=== PATIENT | female | born 1990 | race Two or more races ===

== ENCOUNTER 2025-01-09 14:00 | Emergency (ER) | payer OTHER ==
[~2025-01-09] VITALS: Ht 160 cm; Wt 100.7 kg
--- NOTE | 2025-01-09 14:26 | ED.PDOC ---
GI ASSESSMENT HPI Comments 34 y.o female presents to the ED for a chief complaint of left lower quadrant pain that started yesterday around 1900. Patient reports pain is constant, non radiating and worsens when she is about to urinate. Patient states the LLQ is mildly tender. Patient denies any nausea, vomiting, diarrhea, fever, chills, hematuria, bloody stool. Of note, when asked if she could possibly be , patient states she does not believe she is , however is not using any control. Chief Complaint: Abdominal Pain Time Seen by MD: 14:19 Primary Care Provider: KEHINDE Webster Notes: Medications, Allergies Allergies: Coded Allergies: NO KNOWN ALLERGIES (Unverified , 01/09/25) Mode of Arrival: Ambulatory Timing: Days (1) Duration: Since onset Quality: Sharp Vomitus: None Stool: Normal Severity: Moderate Recent: None Recent Hx of: None Pain Location: LLQ Modifying Factors: Nothing Associated sign and symptoms: Abdominal Pain Past Medical History PAST MEDICAL HISTORY: Denies Surgical History: Denies all surgeries [employer] History: No Pertinent [employer] History Family History Family History: Reviewed,noncontributory to illness, No family hx of Cancer, No family hx of DM, No family hx of Heart digna, No family hx of HTN, No family hx ofKidney digna, No family hx of Liver digna, No family hx of Lung digna, No family hx of Stroke Social History Smoker: Non-Smoker Alcohol: Denies ETOH Use Drugs: Denies Drug Use Lives In: Home Constitutional: denies: chills, diaphoresis, fatigue, fever, malaise, sweats, weakness, others EENTM: denies: blurred vision, double vision, ear bleeding, ear discharge, ear drainage, ear pain, ear ringing, eye pain, eye redness, hearing loss, mouth pain, mouth swelling, nasal discharge, nose bleeding, nose congestion, nose pain, photophobia, tearing, throat pain, throat swelling, voice changes, others Respiratory: denies: cough, hemoptysis, orthopnea, SOB at rest, shortness of breath, SOB with excertion, stridor, wheezing, others Cardiovascular: denies: chest pain, dizzy spells, diaphoresis, Dyspnea on exertion, edema, irregular heart beat, left arm pain, lightheadedness, palpitations, PND, syncope, others Gastrointestinal: reports: abdominal pain; denies: abdomen distended, blood streaked bowels, constipated, diarrhea, dysphagia, difficulty swallowing, hematemesis, melena, nausea, poor appetite, poor fluid intake, rectal bleeding, rectal pain, vomiting, others Genitourinary: denies: abnormal vagina bleeding, burning, dyspareunia, dysuria, flank pain, frequency, hematuria, incontinence, pain, , vagina discharge, urgency, others Neurological: denies: dizziness, fainting, headache, left sided numbness, left sided weakness, numbness, paresthesia, pre-existing deficit, right sided numbness, right sided weakness, seizure, speech problems, tingling, tremors, weakness, others Musculoskeletal: denies: back pain, gout, joint pain, joint swelling, muscle pain, muscle stiffness, neck pain, others Integumetry: denies: bruises, change in color, change in hair/nails, dryness, laceration, lesions, lumps, rash, wounds, others Allergic/Immunocompromised: denies: Difficulty Healing, Frequent Infections, Hives, Itching, others Hematologic/Lymphatic: denies: anemia, blood clots, easy bleeding, easy bruising, swollen glands, others Endocrine: denies: excessive hunger, excessive sweating, excessive thirst, excessive urination, flushing, intolerance to cold, intolerance to heat, unexplained weight gain, unexplained weight loss, others Psychiatric: denies: anxiety, bipolar disorder, depression, hopeless, panic disorder, schizophrenia, sleepless, suicidal, others All Other Systems: Reviewed and Negative Physical Exam General Appearance: No Apparent Distress HEENT: Other (moist mucous membranes) Neck: Full Range of Motion, Normal Inspection Respiratory: Lungs Clear, No Accessory Muscle Use, No Respiratory Distress, Normal Breath Sounds Cardiovascular: No Edema, No JVD, Regular Rate/Rhythm Breast Exam: Deferred Gastrointestinal: Non Tender, Soft Genitalia: Deferred Pelvic: Deferred Rectal: Deferred Extremities: Normal inspection, Normal range of motion, Non-tender, No pedal edema Neurologic: Alert (oriented x 4), Normal Affect, Normal Mood, Other (Ambulatory without difficulty.) Cerebellar Function: NOT DONE Reflexes: NOT DONE Skin: Dry, Normal Color, Warm Lymphatic: NOT DONE Was a procedure done? Was a procedure done?: No GI differential Dx Differential Diagnosis: Bowel Obstruction, Diverticular disease, Ectopic , Inflammatory BD, PID, UTI, Food Poisoning, , Bacterial, Viral, Impaction, Ischemic Bowel, Kidney Stone X-Ray, Labs, Meds, VS Vital Signs Date Time Temp Pulse Resp B/P (MAP) Pulse Ox O2 Delivery O2 Flow Rate FiO2 01/09/25 14:09 98.9 87 16 135/83 (100) 98 Lab Test 01/09/25 14:33 01/09/25 14:31 Range/Units Urine Color Yellow Yellow Urine Clarity Clear Clear Urine pH 5.5 5.0-9.0 Urine Specific [place] 1.026 1.001-1.035 Urine Protein Negative Negative Urine Ketones Negative Negative Urine Blood Negative Negative /uL Urine Nitrite Negative Negative Urine Bilirubin Negative Negative Urine Urobilinogen Normal Negative mg/dL Urine Leukocyte Esterase Negative Negative /uL Urine RBC 1 0 - 4 /hpf Urine Microscopic WBC < 1 0-5 /HPF Urine Squamous Epithelial Cells Few <5 /hpf Urine Bacteria None seen None Seen /hpf Urine Mucus Few None Seen Urine Glucose Normal Normal mg/dL White Blood Count 8.5 4.4-10.8 10^3/uL Red Blood Count 4.82 4.0-5.20 10^6/uL Hemoglobin 13.7 12.2-16.2 g/dL Hematocrit 42.5 36.0-46.0 % Mean Corpuscular Volume 88.2 80.0-100.0 fL Mean Corpuscular Hemoglobin 28.4 28.0-32.0 pg Mean Corpuscular Hemoglobin Concent 32.2 32.0-36.0 g/dL Red Cell Distribution Width 14.3 11.8-14.3 % Platelet Count 295 140-450 10^3/uL Mean Platelet Volume 9.1 6.9-10.8 fL Neutrophils (%) (Auto) 63.1 37.0-80.0 % Lymphocytes (%) (Auto) 25.4 10.0-50.0 % Monocytes (%) (Auto) 6.1 0.0-12.0 % Eosinophils (%) (Auto) 4.8 0.0-7.0 % Basophils (%) (Auto) 0.6 0.0-2.0 % Neutrophils # (Auto) 5.4 1.6-8.6 10 ^3/uL Lymphocytes # (Auto) 2.2 0.4-5.4 10 ^3/uL Monocytes # (Auto) 0.5 0-1.3 10 ^3/uL Eosinophils # (Auto) 0.4 0-0.8 10 ^3/uL Basophils # (Auto) 0.1 0-0.2 10 ^3/uL Nucleated Red Blood Cells 0.1 % Sodium Level 142 136-145 mmol/L Potassium Level 3.8 3.5-5.1 mmol/L Chloride Level 105 98-107 mmol/L Carbon Dioxide Level 30 20-31 mmol/L Anion Gap 7 5-15 Blood Urea Nitrogen 9 9-23 mg/dL Creatinine 0.81 0.550-1.02 mg/dL Glomerular Filtration Rate Calc 99 >90 mL/min BUN/Creatinine Ratio 11.1 10.0-20.0 Serum Glucose 92 74-106 mg/dL Calcium Level 9.7 8.7-10.4 mg/dL Beta HCG, Quantitative 37.7 H 1.5-4.2 mIU/mL PROCEDURE(s): OB4US - OB ULTRASOUND COMP LESS 14WKS REASON: LLQ pain ORDER NUMBER(s): [id number], ACCESSION NUMBER(s): [id number] Procedure: US OB ULTRASOUND COMP LESS 14WKS Study Date and Requested Time: 01/09/2025 03:39 PM Study Description: US OB ULTRASOUND COMP LESS 14WKS History: LLQ pain Comparison: None Technique: Multiple high resolution medina-scale images obtained of the uterus, fetus, and other gestational components with M-mode scanning for evaluation of heart rate. Findings: No intrauterine is visualized. Uterus measures 7.2 x 4.2 x 3.3 cm in size with heterogeneous. Endometrial thickness of 0.7 cm Cervical os appears closed. Multiple nabothian cysts are noted. Right ovary measures 3.6 x 1.7 x 2.6 cm with a 1.7 cm dominant follicle/ cyst. Left ovary measures 3.3 x 1.5 x 2.2 cm. Normal ovarian color Doppler flow bilaterally. No evidence of cystic or solid ovarian lesions. Small amount of free fluid within the cul-de-sac Impression: No intrauterine is visualized. An ectopic can not be excluded. Recommend Correlation with beta HCG. 1.7 cm right ovarian dominant follicle / cyst. X-Ray, Labs, Meds, VS Comment 34-year-old female with no significant past medical history complaining of left lower quadrant abdominal pain Vitals remarkable Exam remarkable for left lower quadrant tenderness to deep palpation. No rebound or guarding. Nontender to percussion. Rhythm strip independently interpreted by me: Sinus rhythm, rate 87, no ectopy. Ob ultrasound: Impression: No intrauterine is visualized. An ectopic can not be excluded. Recommend Correlation with beta HCG. 1.7 cm right ovarian dominant follicle / cyst. CBC, basic metabolic panel and UA unremarkable. Serum quantitative hCG 37.7 Patient treated with the following in the ED: Tylenol 1 g p.o. Patient was advised of the slightly elevated serum quantitative hCG which may indicate early versus recent miscarriage versus ectopic. Patient had improvement of her pain with Tylenol. Vitals were stable on re-evaluation. Patient appears stable for discharge with close outpatient follow-up with her OBGYN. Alternatively, she may follow-up with Dr. Russell, to whom she was referred. She was advised to follow-up within the next 3 days for repeat serum quantitative hCG and repeat ultrasound. She expressed understanding and agreed. Rx Tylenol Time of 1ST Reevaluation: 14:23 Reevaluation 1ST: Unchanged Patient Education/Counseling: Diagnosis, Treatment, Prognosis Family Education/Counseling: No Family Present Departure 1 Departure Time of Disposition: 17:14 Impression: Primary Impression: Abdominal pain affecting Disposition: 01 HOME / SELF CARE / HOMELESS Condition: Stable Referrals: LUCRETIA RUSSELL DO Additional Instructions: Your blood tests showed an elevated serum quantitative hCG of 37.7 ( hormone). Your other blood tests are normal. This could indicate an early , recent miscarriage or ectopic (a outside the uterus). Your ultrasound did not show a inside the uterus. This may be because it is too early to see the baby. I have prescribed pain medication that is safe in . Follow-up with your OBGYN in 3 days for repeat serum quantitative hCG and ultrasound. Alternatively, follow-up directly with Dr. Russell. [place] [id number] Ph: [phone] DIAGNOSTIC IMAGING Diagnostic Imaging Report : [id number] Signed PATIENT: KUSHAL MARTINEZ ACCT: [id number] UNIT: [id number] : 1990 LOC: ER ROOM / BED: / AGE / SEX: 34 / F ADM STATUS: REG ER SERVICE 1524 ORDERING PHYSICIAN: ESTHER ZARAGOZA MD PROCEDURE(s): OB4US - OB ULTRASOUND COMP LESS 14WKS REASON: LLQ pain ORDER NUMBER(s): [id number], ACCESSION NUMBER(s): [id number] Procedure: US OB ULTRASOUND COMP LESS 14WKS Study Date and Requested Time: 01/09/2025 03:39 PM Study Description: US OB ULTRASOUND COMP LESS 14WKS History: LLQ pain Comparison: None Technique: Multiple high resolution medina-scale images obtained of the uterus, fetus, and other gestational components with M-mode scanning for evaluation of heart rate. Findings: No intrauterine is visualized. Uterus measures 7.2 x 4.2 x 3.3 cm in size with heterogeneous. Endometrial thickness of 0.7 cm Cervical os appears closed. Multiple nabothian cysts are noted. Right ovary measures 3.6 x 1.7 x 2.6 cm with a 1.7 cm dominant follicle/ cyst. Left ovary measures 3.3 x 1.5 x 2.2 cm. Normal ovarian color Doppler flow bilaterally. No evidence of cystic or solid ovarian lesions. Small amount of free fluid within the cul-de-sac Impression: No intrauterine is visualized. An ectopic can not be excluded. Recommend Correlation with beta HCG. 1.7 cm right ovarian dominant follicle / cyst. e-Prescriptions Acetaminophen (Tylenol Extra Strength) 500 Mg Tab 1000 MG PO Q6HP PRN, #30 TAB Prov: ESTHER ZARAGOZA MD 01/09/25 Discharged With: Relative Critical Care Note Critical Care Time?: No Stability Stability form required: No I personally scribed for ESTHER ZARAGOZA MD ([email or web address]) on 01/09/25 at 14:26. Electronically submitted by Mary Gongora ([facility]). ESTHER ZARAGOZA MD Jan 09, 2025 14:26
[2025-01-09] MEDS ORDERED: SODIUM CHLORIDE 0.9% 1,000 ML IV ONE (14:30)
[2025-01-09] MEDS ORDERED: MORPHINE SULFATE 4 MG/ML SYR/VIAL IV ONE (14:30)
[2025-01-09] MEDS ORDERED: ONDANSETRON HCL 4 MG/2 ML VIAL IV ONE (14:30)
[2025-01-09 14:47] LABS: Urine Bacteria None Seen /hpf (None Seen)
[2025-01-09 14:47] LABS: Basophils # (auto) 0.1 10 ^3/uL (0-0.2); Basophils % (auto) 0.6 % (0.0-2.0); Eosinophils # (auto) 0.4 10 ^3/uL (0-0.8); Eosinophils % (auto) 4.8 % (0.0-7.0); Hematocrit 42.5 % (36.0-46.0); Hemoglobin 13.7 g/dL (12.2-16.2); Lymphocytes # (auto) 2.2 10 ^3/uL (0.4-5.4); Lymphocytes % (auto) 25.4 % (10.0-50.0); Mean Corpuscular Hemoglobin 28.4 pg (28.0-32.0); Mean Corpuscular Hgb Conc. 32.2 g/dL (32.0-36.0); Mean Corpuscular Volume 88.2 fL (80.0-100.0); Monocytes # (auto) 0.5 10 ^3/uL (0-1.3); Monocytes % (auto) 6.1 % (0.0-12.0); Neutrophils # (auto) 5.4 10 ^3/uL (1.6-8.6); Neutrophils % (auto) 63.1 % (37.0-80.0); Nucleated Red Blood Cells % 0.1 %; Platelet Count (auto) 295 10^3/uL (140-450); Red Blood Cells 4.82 10^6/uL (4.0-5.20); Red Cell Distribution Width 14.3 % (11.8-14.3); White Blood Cell 8.5 10^3/uL (4.4-10.8)
[2025-01-09 14:57] LABS: Chloride 105 mmol/L (98-107); Potassium 3.8 mmol/L (3.5-5.1); Sodium 142 mmol/L (136-145)
[2025-01-09 14:58] LABS: Anion Gap 7 (5-15); Calcium 9.7 mg/dL (8.7-10.4); Carbon Dioxide 30 mmol/L (20-31)
[2025-01-09 15:03] LABS: BUN/Creatinine Ratio 11.1 (10.0-20.0); Glucose 92 mg/dL (74-106)
[2025-01-09 15:04] LABS: Blood Urea Nitrogen 9 mg/dL (9-23)
[2025-01-09 15:12] LABS: Urine Blood Negative /uL (Negative); Urine Clarity Clear (Clear); Urine Color Yellow (Yellow); Urine Mucus FEW (None Seen); Urine Protein, UAD Negative (Negative); Urine Specific Gravity 1.026 (1.001-1.035); Urine Squamous Epithelial Cell FEW /hpf (<5); Urine Urobilinogen Normal (Negative); Urine WBC < 1 /HPF (0-5); Urine pH 5.5 (5.0-9.0)
--- NOTE | 2025-01-09 16:56 | DVH ---
Procedure: US OB ULTRASOUND COMP LESS 14WKS Study Date and Requested Time: 01/09/2025 03:39 PM Study Description: US OB ULTRASOUND COMP LESS 14WKS History: LLQ pain Comparison: None Technique: Multiple high resolution medina-scale images obtained of the uterus, fetus, and other gestat ional components with M-mode scanning for evaluation of heart rate. Findings: No intrauterine is visualized. Uterus measures 7.2 x 4.2 x 3.3 cm in size with heterogeneous. Endometrial thickness of 0.7 cm Cervic al os appears closed. Multiple nabothian cysts are noted. Right ovary measures 3.6 x 1.7 x 2.6 cm with a 1.7 cm dominant follicle/ cyst. Left ovary measures 3. 3 x 1.5 x 2.2 cm. Normal ovarian color Doppler flow bilaterally. No evidence of cystic or solid ovari an lesions. Small amount of free fluid within the cul-de-sac Impression: No intrauterine is visualized. An ectopic can not be excluded. Recommend Correla tion with beta HCG. 1.7 cm right ovarian dominant follicle / cyst.
[2025-01-09] MEDS ORDERED: ACET-1304 PO (17:15)
[2025-01-09] MEDS: ACETAMINOPHEN 500 MG TAB or CAP PO ONE (17:50)
[2025-01-09 17:53] VITALS: BP 132/67; PULSE 60; RESP 18; TEMP 97.9; O2SAT 98
== END 2025-01-09 17:52 | disposition home or self-care (01) ==
LOC: ER 14:00
DX: R10.32 Left lower quadrant pain (principal)
CPT/HCPCS: 36415; 76801; 76817; 80048; 81001; 84702; 85025; 87086